=== PATIENT | female | born 1950 ===

== ENCOUNTER 2019-06-26 09:17 | Day surgery (SDC) | payer MEDICARE, OTHER ==
[~2019-06-26] VITALS: Ht 157.5 cm; Wt 89.0 kg
[~2019-06-26 09:17] MED LIST: Antivert25 MG PO; KETO10 PO; NAPR500; OLME20 PO; OMEP20ER PO; TOLT4
[2019-06-26] MEDS ORDERED: IRBE150 (09:49)
[2019-06-26] MEDS ORDERED: METF500 (09:50)
[2019-06-26] MEDS ORDERED: OSTERA TABLET1 EACH (09:50)
[2019-06-26] MEDS ORDERED: PANT40 (09:50)
[2019-06-26] MEDS ORDERED: ROSU5 (09:51)
== END 2019-06-26 11:55 | disposition home or self-care (01) ==
LOC: ORSCSDS 09:17
PROVIDERS: Internal Medicine Gastroenterology
PROC: 0DBH8ZX Excision of Cecum, Via Natural or Artificial Opening Endoscopic, Diagnostic (ICD-10-PCS; principal; 2019-06-26 10:45)
PROC: 0DBK8ZX Excision of Ascending Colon, Via Natural or Artificial Opening Endoscopic, Diagnostic (ICD-10-PCS; principal; 2019-06-26 10:45)
DX: Z12.11 Encounter for screening for malignant neoplasm of colon (principal); D12.0 Benign neoplasm of cecum; D12.2 Benign neoplasm of ascending colon; K57.30 Diverticulosis of large intestine without perforation or abscess without bleeding; Z86.010 Personal history of colon polyps; E11.9 Type 2 diabetes mellitus without complications; I10 Essential (primary) hypertension; K76.0 Fatty (change of) liver, not elsewhere classified; Z79.84 Long term (current) use of oral hypoglycemic drugs; Z79.899 Other long term (current) drug therapy
CPT/HCPCS: 82947; 88305; J2704; J7120

== ENCOUNTER → 2019-07-12 | Outpatient (CLI) | payer MEDICARE, OTHER ==
[~2019-07-12] MED LIST changes: +IRBE150; +METF500; +OSTERA TABLET1 EACH; +PANT40; +ROSU5
[2019-07-12 19:52] LABS: Microalb/Creat Ratio UR, Rand 21.071 mg/g (0.000-30.000); Microalbumin, Random Urine 23.6 mg/L (0.000-20.000)
== END | disposition home or self-care (01) ==
LOC: LAB 14:34 → LAB SHORT 14:34
PROVIDERS: Internal Medicine
DX: E11.8 Type 2 diabetes mellitus with unspecified complications (principal); D69.6 Thrombocytopenia, unspecified
CPT/HCPCS: 82043; 82570

== ENCOUNTER → 2021-02-10 | Outpatient (CLI) | payer MEDICARE ==
[2021-02-10 20:15] LABS: Thyroid Stimulating Hormone 0.868 uIU/mL (0.360-4.800)
[2021-02-10 20:30] LABS: Potassium, Blood 3.3 mmol/L (3.5-5.5)
== END | disposition home or self-care (01) ==
LOC: LAB SHORT 19:15
PROVIDERS: Internal Medicine
DX: R00.0 Tachycardia, unspecified (principal); E87.6 Hypokalemia
CPT/HCPCS: 83735; 84132; 84443

== ENCOUNTER 2022-11-11 06:38 | Day surgery (SDC) | payer MEDICARE, OTHER ==
[~2022-11-11] VITALS: Ht 157.5 cm; Wt 86.6 kg
[~2022-11-11 06:38] MED LIST changes: +ESCI10 PO; +EZET10 PO; +GLIP2.5ER PO; +MONT10T PO; +SPIR25 PO; +THERA-D2000 UNIT PO; +Vitamin B-12100 MCG PO
[2022-11-11 07:20] VITALS: BP 138/79
[2022-11-11 09:46] VITALS: BP 162/82
[2022-11-11 10:00] VITALS: BP 145/75
[2022-11-11 10:15] VITALS: BP 159/79
[2022-11-11 13:00] VITALS: BP 148/72
[2022-11-11 13:34] VITALS: BP 150/75
--- NOTE | 2022-11-11 14:42 | NUR ---
PT AMBULATES TO RESTROOM WITHOUT DIFF. PT DRESSES SELF WITH MINMAL ASSISTANCE. PT BILATERAL TR BANDS REMOVED. CLOTH DOTS IN PLACE. NO BLEEDING NOTED. VSS. PT AND S/O VERBALIZES UNDERSTANDING WRITTEN AND VERBAL INSTRUCTIONS. DENIES QUESTIONS. PT IV DC'D. CATH INTACT. PRESSURE DSG APPLIED. PT DC TO HOME VIA WC BY S/O
== END 2022-11-11 15:16 | disposition home or self-care (01) ==
LOC: MHTC 06:38
DX: I25.10 Atherosclerotic heart disease of native coronary artery without angina pectoris (principal); I27.20 Pulmonary hypertension, unspecified; I35.0 Nonrheumatic aortic (valve) stenosis; I49.3 Ventricular premature depolarization; I11.0 Hypertensive heart disease with heart failure; I50.32 Chronic diastolic (congestive) heart failure; I07.1 Rheumatic tricuspid insufficiency
CPT/HCPCS: 76937; 82947; 93456; 99152; 99153; A9270; C1769; C1887; C1894; J1644; J2250; J3010; J7030; J7050; Q9967

== ENCOUNTER 2024-08-11 08:23 | Day surgery (SDC) | payer MEDICARE, OTHER ==
[~2024-08-11] VITALS: Ht 157.5 cm; Wt 86.9 kg
[~2024-08-11 08:23] MED LIST changes: -IRBE150; +IRBE75 PO; +Lactated Ringer's 1,000 ML IV ONE; +Lactated Ringer's 1,000 ML IV SCH; +MAG DELAY64 MG; -METF500; +METF500 PO; +METO25ER PO; +NAC600 MG PO; -PANT40; +PANT40 PO
[2024-08-11 08:49] VITALS: BP 163/88
[2024-08-11] MEDS ORDERED: propofoL 40 ML IV ONE (09:13)
--- NOTE | 2024-08-11 09:44 | NUR ---
08/11/24 0944 Juan Farias MONITOR INTACT WITH CONTINUOUS PULSE OXIMETRY, CONTINUOUS END TITAL CO2, 3-LEAD EKG AND INTERMITTENT BLOOD PRESSURE.O2 VIA POM INTACT THROUGHOUT SEDATION/PROCEDURE.
[2024-08-11 10:05] VITALS: BP 108/68
[2024-08-11 10:20] VITALS: BP 124/84
--- NOTE | 2024-08-11 10:36 | NUR ---
DISCHARGE NOTE PT A&OX4, BREATHING RA, VSS, TOLERATING PO FLUIDS, CHATTING C STAFF. AT BEDSIDE. Discharge instructions reviewed with patient. Patient verbalizes understanding. Copy given to patient to take home. Discharged via wheelchair to private car for ride home.
== END 2024-08-11 10:40 | disposition home or self-care (01) ==
LOC: ORSCMMR 08:23 → ORD 09:45 → ORSCMMR 10:40
DX: Z12.11 Encounter for screening for malignant neoplasm of colon (principal); K63.5 Polyp of colon; K57.30 Diverticulosis of large intestine without perforation or abscess without bleeding; Z86.0101 Personal history of adenomatous and serrated colon polyps; Z86.16 Personal history of COVID-19; I50.32 Chronic diastolic (congestive) heart failure; I10 Essential (primary) hypertension; K21.9 Gastro-esophageal reflux disease without esophagitis; E11.9 Type 2 diabetes mellitus without complications; E66.9 Obesity, unspecified; Z68.35 Body mass index [BMI] 35.0-35.9, adult; Z79.84 Long term (current) use of oral hypoglycemic drugs; Z79.899 Other long term (current) drug therapy
CPT/HCPCS: 82947; 88305; J2704; J7120

== ENCOUNTER 2024-12-28 03:26 | Day surgery (SDC) | payer MEDICARE, OTHER ==
[~2024-12-28 03:26] MED LIST changes: -GLIP2.5ER PO; +GLIPIZIDE ER2.5 MG PO; -Lactated Ringer's 1,000 ML IV ONE; -Lactated Ringer's 1,000 ML IV SCH
[2024-12-28] MEDS ORDERED: INCLISIRAN SODIUM 284 MG/1.5 ML SYRINGE SC SCH (06:00)
[2024-12-28 11:02] VITALS: BP 159/79
[2024-12-28] MEDS ORDERED: FURO20 PO (11:36)
[2024-12-28] MEDS ORDERED: POTA10T PO (11:36)
== END 2024-12-28 11:06 | disposition home or self-care (01) ==
LOC: ATC 03:26
DX: E78.00 Pure hypercholesterolemia, unspecified (principal); I25.10 Atherosclerotic heart disease of native coronary artery without angina pectoris; I11.0 Hypertensive heart disease with heart failure; I50.32 Chronic diastolic (congestive) heart failure; E11.51 Type 2 diabetes mellitus with diabetic peripheral angiopathy without gangrene; Z79.84 Long term (current) use of oral hypoglycemic drugs; Z79.899 Other long term (current) drug therapy; Z88.5 Allergy status to narcotic agent; Z88.6 Allergy status to analgesic agent; Z88.8 Allergy status to other drugs, medicaments and biological substances; Z86.16 Personal history of COVID-19
CPT/HCPCS: 96372; J1306